=== PATIENT | male | born 1975 | race Asian ===

== ENCOUNTER 2025-04-17 06:26 | Emergency (ER) | payer OTHER ==
[~2025-04-17] VITALS: Ht 170.2 cm; Wt 72.0 kg
[2025-04-17 06:40] VITALS: O2SAT 100
[2025-04-17 07:00] LABS: CLARITY URINE CLEAR (CLEAR); COLOR URINE YELLOW (YELLOW); GLUCOSE URINE NEGATIVE (NEGATIVE); KETONES URINE NEGATIVE (NEGATIVE); LEUKOCYTE ESTERASE URINE NEGATIVE (NEGATIVE); NITRITE URINE NEGATIVE (NEGATIVE); OCCULT BLOOD URINE 1+ (NEGATIVE); PH URINE 6.0 (4.5-8.0); PROTEIN URINE NEGATIVE (NEGATIVE); SPECIFIC GRAVITY URINE 1.018 (1.005-1.030); UROBILINOGEN URINE 0.2 E.U./dL (0.2-1.0)
[2025-04-17] MEDS: ONDANSETRON 4MG ODT PO ONE (07:15)
[2025-04-17 07:32] LABS: SQUAMOUS EPITHELIAL CELL URINE FEW /lpf (RARE/1+); WBC URINE NONE SEEN /hpf (0-2)
[2025-04-17 07:33] LABS: BACTERIA URINE NONE SEEN
[2025-04-17 07:53] LABS: HEMATOCRIT. 44.4 % (42.0-52.0); HEMOGLOBIN. 15.1 g/dL (14.0-18.0); MEAN PLATELET VOLUME 7.8 fl (7.4-10.4); PLATELET 251 x1000/uL (130-400); RED BLOOD CELL COUNT 4.73 mill/uL (4.7-6.1); RED CELL DISTRIBUTION WIDTH 14.5 % (11.6-14.6)
[2025-04-17 08:07] LABS: CREATININE 1.3 mg/dL (0.6-1.3); UREA NITROGEN BLOOD 18 mg/dL (9-23)
[2025-04-17 08:09] LABS: ASPARTATE AMINOTRANSFERASE 20 IU/L (<34); BILIRUBIN DIRECT 0.1 mg/dL (<=3.0); BILIRUBIN TOTAL 0.5 mg/dL (0.1-1.0); PROTEIN TOTAL 6.9 g/dL (6.0-8.3)
[2025-04-17] MEDS ORDERED: KETO10TA2 MT (08:26)
[2025-04-17] MEDS ORDERED: ONDA-239 PO (08:26)
[2025-04-17] MEDS: KETOROLAC 30MG/ML VIAL IM ONE (08:37)
[2025-04-17 08:43] VITALS: BP 129/85; PULSE 55; RESP 18; TEMP 37.1; O2SAT 100
[2025-04-17 11:19] LABS: BAND% 7.0 % (1.0-6.0); LYMPHOCYTES % MANUAL 6.0 % (20.0-50.0); MONOCYTES % MANUAL 4.0 % (2.0-8.0); NEUTROPHILS % MANUAL 83.0 % (45.0-75.0); PLATELET ESTIMATE NORMAL
== END 2025-04-17 08:49 | disposition home or self-care (01) ==
LOC: ER 06:26 → EDBD 06:26 → ER 08:49
DX: K76.9 Liver disease, unspecified (principal); R91.1 Solitary pulmonary nodule
CPT/HCPCS: 80076; 80048; 81003; 83690; 85025; 36415; 74176; 96372; 99285; Q0162; J1885; Z7610